=== PATIENT | female | born 1965 | race Caucasian/White ===

== ENCOUNTER 2021-04-23 08:53 | Observation (INO) ==
[2021-04-23] MEDS ORDERED: ONDANSETRON 4 MG/2 ML VIAL IV PRN (09:48)
[2021-04-23 10:56] LABS: Basophils % 0.5 % (0.0-0.8); Eosinophils # 0.3 10*3/uL (0.0-0.87); Hematocrit 47.2 VOL% (35.7-47.0); Hemoglobin 15.5 GM/DL (12.0-16.0); Immature Granulocytes % 0.3 %; Immature Granulocytes Absolute 0.02 #; Lymphocytes # 2.4 10*3/uL (1.4-4.0); Lymphocytes % 30.9 % (21.3-54.2); Mean Corpuscular HGB Conc 32.8 GM/DL (32-36); Mean Corpuscular Volume 87.1 FL (87-102); Mean Platelet Volume 11.1 FL (9.6-12.0); Monocytes % 7.7 % (1.7-12.7); Neutrophils % 56.6 % (38.7-73.9); Platelet Count 234 T/CUMM (130-400); Red Blood Count 5.42 MC/CUMM (3.8-5.5); Red Cell Distribution Width 14.2 % (9.3-17.3); White Blood Count 7.8 T/CUMM (4-12)
[2021-04-23] MEDS: ACETAMINOPHEN 325 MG TABLET PO PRN ×2 (12:06→16:54)
[2021-04-23 13:29] LABS: Calcium 8.5 MG/DL (8.5-10.1); Osmolality,Calculated 281.3 MOS/KG (273-304); Potassium 3.8 MMOL/L (3.5-5.1)
[2021-04-23] MEDS ORDERED: amLODIPine 5 MG TABLET PO ONE (14:41)
[2021-04-23] MEDS ORDERED: hydrALAZINE 20 MG/1 ML VIAL IV PRN (14:42)
[2021-04-23] MEDS: ENOXAPARIN 40 MG/0.4 ML SYRINGE SUBCUT SCH (16:53)
[2021-04-23] MEDS ORDERED: ALBUTEROL 2.5 MG/3 ML NEB RESP TX PRN (19:00)
[2021-04-23] MEDS: Glycopyrrolate-Formoterol [Bevespi Aerosphere] 9-4.8 mcg Hfa Aer INH SCH (22:49)
[2021-04-23] MEDS: DOCUSATE SODIUM 100 MG CAPSULE PO SCH (22:49)
[2021-04-24 05:39] LABS: Basophils # 0.1 10*3/uL (0.0-0.2); Basophils % 0.9 % (0.0-0.8); Eosinophils # 0.3 10*3/uL (0.0-0.87); Eosinophils % 5.5 % (0.00-10.9); Hematocrit 46.6 VOL% (35.7-47.0); Hemoglobin 15.1 GM/DL (12.0-16.0); Immature Granulocytes % 0.3 %; Immature Granulocytes Absolute 0.02 #; Lymphocytes # 2.7 10*3/uL (1.4-4.0); Lymphocytes % 46.3 % (21.3-54.2); Mean Corpuscular HGB Conc 32.4 GM/DL (32-36); Mean Corpuscular Volume 88.1 FL (87-102); Mean Platelet Volume 11.9 FL (9.6-12.0); Monocytes % 10.2 % (1.7-12.7); Neutrophils % 36.8 % (38.7-73.9); Platelet Count 236 T/CUMM (130-400); Red Blood Count 5.29 MC/CUMM (3.8-5.5); Red Cell Distribution Width 14.2 % (9.3-17.3); White Blood Count 5.8 T/CUMM (4-12)
[2021-04-24 06:13] LABS: Albumin 3.3 G/DL (3.4-5.0); Bilirubin,Total 0.5 MG/DL (0.20-1.00); Calcium 8.4 MG/DL (8.5-10.1); Eosinophils 5 % (0-10); Lymphocytes 58 % (20-55); Osmolality,Calculated 280.1 MOS/KG (273-304); Platelet Estimate Adequate; Potassium 3.6 MMOL/L (3.5-5.1); Segmented Neutrophils 30 % (50-85); Total Cells Counted 100; Total Protein 6.3 G/DL (6.4-8.2)
[2021-04-24] MEDS: NAPROXEN 500 MG TABLET PO PRN ×2 (07:22→20:43)
[2021-04-24] MEDS: amLODIPine 5 MG TABLET PO SCH (08:54)
[2021-04-24] MEDS: DOCUSATE SODIUM 100 MG CAPSULE PO SCH ×2 (08:54→20:43)
[2021-04-24] MEDS: PANTOPRAZOLE 40 MG TABLET PO SCH (08:55)
[2021-04-24] MEDS: ASPIRIN EC 81 MG TABLET PO SCH (08:55)
[2021-04-24] MEDS: Glycopyrrolate-Formoterol [Bevespi Aerosphere] 9-4.8 mcg Hfa Aer INH SCH ×2 (08:57→20:48)
[2021-04-24] MEDS: ENOXAPARIN 40 MG/0.4 ML SYRINGE SUBCUT SCH (14:47)
[2021-04-24] MEDS ORDERED: diphenhydrAMINE 2% CREAM 28 GM TUBE TOP PRN (18:06)
[2021-04-24] MEDS ORDERED: diphenhydrAMINE CAP 25 MG CAPSULE PO PRN (18:09)
[2021-04-24] MEDS ORDERED: SIMVASTATIN 10 MG TABLET PO SCH (21:00)
[2021-04-25 08:23] VITALS: BP 119/77
[2021-04-25] MEDS: amLODIPine 5 MG TABLET PO SCH (11:02)
[2021-04-25] MEDS: ASPIRIN EC 81 MG TABLET PO SCH (11:02)
[2021-04-25] MEDS: DOCUSATE SODIUM 100 MG CAPSULE PO SCH (11:02)
[2021-04-25] MEDS: PANTOPRAZOLE 40 MG TABLET PO SCH (11:02)
[2021-04-25] MEDS: Glycopyrrolate-Formoterol [Bevespi Aerosphere] 9-4.8 mcg Hfa Aer INH SCH (11:03)
== END 2021-04-25 11:32 | disposition home or self-care (01) ==
LOC: N.TELEN
PROVIDERS: ADMIT Family Medicine; ATTEND Family Medicine